=== PATIENT | male | born 1965 | race Hispanic/Latino ===

== ENCOUNTER 2016-11-19 07:53 | Outpatient (RCR) | payer MEDICAID, OTHER ==
[~2016-11-19 07:53] MED LIST: /ESOM40CA OR; /OLAN5ZYD OR; /QUET25TA OR; /THIA10TA OR; ABIL10TA; ABIL15TA; ABIL20TA2; ABIL2TAB OR; ABIL5TAB; ALLE25CA; ANBESOL; BEN; BENADRYL PO; CATA0.1T OR; CELE100C OR; EFFE150C; FERR325T; FOLI1TAB OR; IBUP600T OR; IBUP800T OR; KLON1TAB; KLON1TAB OR; KLON2TAB; LAMI; LAMICTAL PO; LITH300T2 OR; LITH600C OR; LYRI75CA OR; NEUR100C OR; NEUR300C OR; NEXI20CA; NEXI20CA OR; No Historical Meds; PARO12TACR OR; PAXI20TA OR; PREG100CA OR; PREG25CA OR; PREG50CA; PREG50CA OR; PROP60TA OR; QUET30TA OR; SERO200T; SERO200T OR; SERO400T; SERO400T OR; SERO400T3; SEROQUEL PO; TRAM50TA2; TRAM50TA2 OR; VENL25TA; VENL37.5; VENL75TA2; XANA2TAB2; ZOLO50TA OR; ZYPR10TA OR; [UNRECOGNIZED DRUG - CODE]; [UNRECOGNIZED DRUG - CODE]; [UNRECOGNIZED DRUG - CODE]; [UNRECOGNIZED DRUG - OTHER]
== END 2016-11-24 ==
LOC: M OUTALCOH 07:53
PROVIDERS: ATTEND Psychiatry & Neurology Psychiatry
DX: F10.20 Alcohol dependence, uncomplicated (principal); F15.20 Other stimulant dependence, uncomplicated; Z72.0 Tobacco use

== ENCOUNTER 2017-01-03 09:54 | Emergency (ER) | payer MEDICAID, SELFPAY ==
[~2017-01-03] VITALS: Ht 172.7 cm; Wt 82.0 kg
[2017-01-03 09:55] VITALS: BP 140/94
[2017-01-03] MEDS ORDERED: OMEP40CA2 PO (10:05)
[2017-01-03] MEDS ORDERED: BUSP30TA PO ×2 (10:05→10:27)
[2017-01-03] MEDS ORDERED: BUSP10TA PO (10:05)
[2017-01-03] MEDS ORDERED: NALT50TA4 PO (10:05)
[2017-01-03] MEDS ORDERED: MIRT30TA3 PO ×2 (10:05→10:27)
[2017-01-03] MEDS ORDERED: OMEP20CA3 PO (10:27)
[2017-01-03] MEDS ORDERED: GABA800T PO (10:27)
[2017-01-03] MEDS ORDERED: SERO200T PO (10:27)
== END 2017-01-03 10:36 | disposition home or self-care (01) ==
LOC: M ED 09:54
DX: Z76.0 Encounter for issue of repeat prescription (principal); M54.5 Low back pain; M51.36 Other intervertebral disc degeneration, lumbar region; I10 Essential (primary) hypertension; E78.00 Pure hypercholesterolemia, unspecified; K21.9 Gastro-esophageal reflux disease without esophagitis; E11.9 Type 2 diabetes mellitus without complications; B19.20 Unspecified viral hepatitis C without hepatic coma; F41.9 Anxiety disorder, unspecified; F32.9 Major depressive disorder, single episode, unspecified; F17.200 Nicotine dependence, unspecified, uncomplicated; Z79.899 Other long term (current) drug therapy; Z88.5 Allergy status to narcotic agent; Z88.8 Allergy status to other drugs, medicaments and biological substances

== ENCOUNTER 2017-02-11 18:34 | Emergency (ER) | payer OTHER, SELFPAY ==
[~2017-02-11] VITALS: Ht 172.7 cm; Wt 71.4 kg
[~2017-02-11 18:34] MED LIST changes: +BUSP10TA PO; +BUSP30TA PO; +GABA800T PO; +MIRT30TA3 PO; +NALT50TA4 PO; +OMEP20CA3 PO; +OMEP40CA2 PO; +SERO200T PO
[2017-02-11] MEDS ORDERED: LIDOCAINE 2% MDV 20 ML VIAL SC ONE (22:30)
[2017-02-11] MEDS ORDERED: CEFTAROLINE FOSAMIL 600 MG in D5W MINI-BAG PLUS 50 ML IV ONE (23:45)
[2017-02-11 23:53] VITALS: BP 118/80
[2017-02-12] LABS: ANION GAP 7 MEQ/L (8-16); BLOOD UREA NITROGEN 5 MG/DL (7-18); CALCIUM LEVEL 11.1 MG/DL (8.5-10.1); CARBON DIOXIDE LEVEL 22 MEQ/L (21-32); CHLORIDE LEVEL 108 MEQ/L (98-107); CREATININE FOR GFR 0.71 MG/DL (0.70-1.30); GLOMERULAR FILTRATION RATE > 60.0 (>56); GLUCOSE, FASTING 89 MG/DL (70-105); SODIUM LEVEL 137 MEQ/L (136-145)
[2017-02-12] MEDS ORDERED: BACT800T5 PO (01:06)
== END 2017-02-12 01:25 | disposition home or self-care (01) ==
LOC: M ED 18:34
DX: L03.115 Cellulitis of right lower limb (principal); B95.0 Streptococcus, group A, as the cause of diseases classified elsewhere; F19.10 Other psychoactive substance abuse, uncomplicated; M51.36 Other intervertebral disc degeneration, lumbar region; F41.9 Anxiety disorder, unspecified; F32.9 Major depressive disorder, single episode, unspecified; Z79.899 Other long term (current) drug therapy; Z88.5 Allergy status to narcotic agent; Z88.8 Allergy status to other drugs, medicaments and biological substances

== ENCOUNTER 2017-02-14 07:08 | Emergency (ER) | payer OTHER ==
[~2017-02-14] VITALS: Ht 170.2 cm; Wt 75.0 kg
[~2017-02-14 07:08] MED LIST changes: +BACT800T5 PO
[2017-02-14] MEDS ORDERED: GABA800T PO ×2 (07:28→10:05)
[2017-02-14] MEDS ORDERED: QUET1TAB9 PO ×2 (07:28→10:05)
[2017-02-14 07:30] VITALS: BP 129/90
[2017-02-14] MEDS ORDERED: MIRT30TA3 PO (10:00)
[2017-02-14] MEDS ORDERED: BUSP30TA PO (10:05)
[2017-02-14] MEDS ORDERED: OMEP40CA2 PO (10:05)
== END 2017-02-14 10:21 | disposition home or self-care (01) ==
LOC: M ED 07:08
DX: Z76.0 Encounter for issue of repeat prescription (principal); L03.90 Cellulitis, unspecified; B19.20 Unspecified viral hepatitis C without hepatic coma; F17.210 Nicotine dependence, cigarettes, uncomplicated; Z79.2 Long term (current) use of antibiotics; Z88.8 Allergy status to other drugs, medicaments and biological substances

== ENCOUNTER → 2017-05-05 | Outpatient (CLI) | payer OTHER ==
[~2017-05-05] MED LIST changes: +QUET1TAB9 PO
--- NOTE | 2017-05-05 16:27 | REP ---
Soft-tissue nonvascular ultrasound left thigh with Doppler: History: Painful palpable lump times 1 week upper inner left thigh. No comparison imaging. Sonographic findings: There is a chain of lymph nodes visible in the medial aspect of the left proximal thigh and groin soft tissues. The largest node measures 5.2 cm in length by 1.6 x 3.2 cm transverse. It is somewhat hyperemic on Doppler assessment. No abnormal fluid collection is seen. Impression: Medial thigh lymphadenopathy. Clinical follow-up is recommended. Signed by Guy Lynn MD 05/05/2017 05:28 P
== END ==
LOC: M SMT 10:19
PROVIDERS: ATTEND Surgery
DX: R59.0 Localized enlarged lymph nodes (principal)

== ENCOUNTER 2017-09-20 08:12 | Emergency (ER) | payer MEDICAID, OTHER ==
[2017-09-20] MEDS: NORCO, ANEXSIA 5/325MG TABLET (HYDROcodone/ACETAMINOPHEN) PO ×2 (09:26)
== END 2017-09-20 10:36 | disposition home or self-care (01) ==
LOC: M ED 08:12
DX: S86.112A Strain of other muscle(s) and tendon(s) of posterior muscle group at lower leg level, left leg, initial encounter (principal); X58.XXXA Exposure to other specified factors, initial encounter; Y92.89 Other specified places as the place of occurrence of the external cause; Y35.93XA Legal intervention, means unspecified, suspect injured, initial encounter; I10 Essential (primary) hypertension; K21.9 Gastro-esophageal reflux disease without esophagitis; B18.9 Chronic viral hepatitis, unspecified; M51.9 Unspecified thoracic, thoracolumbar and lumbosacral intervertebral disc disorder; F33.9 Major depressive disorder, recurrent, unspecified; F41.9 Anxiety disorder, unspecified; F17.210 Nicotine dependence, cigarettes, uncomplicated; F19.10 Other psychoactive substance abuse, uncomplicated; Z88.8 Allergy status to other drugs, medicaments and biological substances; Z79.899 Other long term (current) drug therapy; Z87.820 Personal history of traumatic brain injury
CPT/HCPCS: 73590

== ENCOUNTER 2018-06-13 06:36 | Emergency (ER) | payer MEDICAID | END 2018-06-13 07:16 | disposition home or self-care (01) | LOC: M ED 06:36 | DX: Z76.0 Encounter for issue of repeat prescription (principal); I10 Essential (primary) hypertension; K21.9 Gastro-esophageal reflux disease without esophagitis; M51.9 Unspecified thoracic, thoracolumbar and lumbosacral intervertebral disc disorder; F41.9 Anxiety disorder, unspecified; F32.9 Major depressive disorder, single episode, unspecified; Z86.19 Personal history of other infectious and parasitic diseases; F19.10 Other psychoactive substance abuse, uncomplicated; Z72.0 Tobacco use; Z79.899 Other long term (current) drug therapy; Z88.8 Allergy status to other drugs, medicaments and biological substances | CPT/HCPCS: 99284 ==

== ENCOUNTER 2018-09-04 13:08 | Emergency (ER) | payer MEDICAID ==
[~2018-09-04] VITALS: Ht 170.2 cm; Wt 77.3 kg
[2018-09-04 13:08] VITALS: BP 143/92
[~2018-09-04 13:08] MED LIST changes: -GABA800T PO; +GABA800T4 PO; +IBUP80TA PO; +QUET1TAB8 PO; +WELL200T PO; +[UNRECOGNIZED DRUG - REMARK]
== END 2018-09-04 16:43 | disposition left against medical advice (07) ==
LOC: M ED 13:08
DX: Z53.21 Procedure and treatment not carried out due to patient leaving prior to being seen by health care provider (principal)

== ENCOUNTER 2019-01-02 23:38 | Emergency (ER) | payer MEDICAID, SELFPAY ==
[~2019-01-02] VITALS: Ht 170.2 cm; Wt 71.8 kg
[2019-01-02 23:38] VITALS: BP 111/69
[~2019-01-02 23:38] MED LIST changes: -/ESOM40CA OR; -/OLAN5ZYD OR; -/QUET25TA OR; +NEXI1CAP3 OR; -OMEP20CA3 PO; +OMEP20CA4 PO; +SERO1TAB3 OR; +VENL1TAB35; -VENL25TA; +ZYPR1TAB3 OR
== END 2019-01-03 00:28 | disposition left against medical advice (07) ==
LOC: M ED 23:38
DX: Z53.29 Procedure and treatment not carried out because of patient's decision for other reasons (principal)

== ENCOUNTER 2019-03-23 01:29 | Emergency (ER) | payer SELFPAY ==
[~2019-03-23] VITALS: Ht 170.2 cm; Wt 65.9 kg
[~2019-03-23 01:29] MED LIST changes: -QUET1TAB9 PO; +QUET200T2 PO
[2019-03-23] MEDS ORDERED: ZYPR15TA PO (01:36)
[2019-03-23] MEDS ORDERED: CLINDAMYCIN 900 MG in IV 1 EA IV ONE (03:00)
[2019-03-23] MEDS ORDERED: KETOROLAC 30 MG/ML VIAL (J1885) IV ONE (03:15)
[2019-03-23 03:19] LABS: BASO % 0.4 % (0.0-1.0); EOS # 0.1 10^3/uL (0.0-0.5); EOS % 0.5 % (0.0-3.0); HEMATOCRIT 46.2 % (42.0-52.0); HEMOGLOBIN 15.7 g/dl (13.5-17.5); LYMPH # 2.2 10^3/uL (1.5-5.0); LYMPH % 19.7 % (24.0-44.0); MEAN CORPUSCULAR HEMOGLOBIN 32.2 pg (27.0-33.0); MEAN CORPUSCULAR VOLUME 94.9 fl (80.0-96.0); MONO # 0.9 10^3/uL (0.0-0.8); MONO % 8.2 % (0.0-5.0); NEUTROPHILS # 7.7 10^3/uL (1.5-8.5); NEUTROPHILS % 70.8 % (36.0-66.0); PLATELET COUNT, AUTOMATED 208 10^3/uL (150-450); RED BLOOD COUNT 4.87 10^6/uL (4.30-6.10); WHITE BLOOD COUNT 10.9 10^3/uL (4.0-10.0)
[2019-03-23 03:48] LABS: BLOOD UREA NITROGEN 8 MG/DL (7-18); CALCIUM LEVEL 11.1 MG/DL (8.5-10.1); CARBON DIOXIDE LEVEL 28 MEQ/L (21-32); CHLORIDE LEVEL 104 MEQ/L (98-107); CREATININE FOR GFR 0.68 MG/DL (0.70-1.30); GLOMERULAR FILTRATION RATE > 60.0 (>56); GLUCOSE, FASTING 109 MG/DL (70-100); POTASSIUM SERUM 3.7 MEQ/L (3.5-5.1); SODIUM LEVEL 141 MEQ/L (136-145)
[2019-03-23] MEDS ORDERED: ISOVUE-370 76% 100ML VIAL (Q9967) As Ordered ONE (04:35)
[2019-03-23 05:36] VITALS: BP 116/68
--- NOTE | 2019-03-23 06:16 | REPVR ---
PROCEDURE INFORMATION: Exam: CT Maxillofacial With Contrast Exam date and time: 03/23/2019 4:30 AM Clinical history: 53 years old, male; Maxilla pain; Additional info: Dental abscess, left TECHNIQUE: Imaging protocol: Computed tomography images of the face with intravenous contrast. Radiation optimization: All CT scans at this facility use at least one of these dose optimization techniques: automated exposure control; mA and/or kV adjustment per patient size (includes targeted exams where dose is matched to clinical indication); or iterative reconstruction. Contrast material: ISO; Contrast volume: 75 ml; Contrast route: AC; Other technique: Initial images were markedly limited by motion. Images were repeated for motion. COMPARISON: No relevant prior studies available. FINDINGS: Orbits: Orbits are normal. Globes are unremarkable. Sinuses: There is diffuse mucoperiosteal thickening in the left maxillary sinus, consistent with chronic sinusitis. There is a trace mucoperiosteal thickening in the right maxillary sinus and ethmoid sinus. The frontal and sphenoid sinuses are clear. No fluid levels. Bones/joints: There is mild deformity of the nasal bones, probably with the sequela of previous trauma. No acute fracture are identified. Dental: There are multiple large dental caries. There is a periapical lucency associated with the left maxillary cuspid tooth which also extends to the tip of the root of the adjacent left first maxillary bicuspid tooth. There is defect in the overlying cortex. There is a periapical lucency at the left maxillary central incisor. Nasopharynx: The nasopharynx appears unremarkable. Oropharynx: The oropharynx appears unremarkable. There is no enlargement of the tonsils. Lymph nodes: No lymphadenopathy is seen. Soft tissues: There is a large amount of soft tissue swelling anteriorly on the left side of the face centered in the maxillary region. There is a crescentic lucency with peripheral enhancement overlying the left maxillary alveolar ridge, measuring 9 x 4 mm, consistent with a dental abscess extending into the soft tissues. IMPRESSION: 1. Left maxillary cuspid tooth periapical lucency, defect in the overlying cortex, a small crescentic peripherally enhancing collection in the overlying soft tissues, and a large amount of adjacent left sided facial soft tissue swelling, consistent with a dental abscess extending into the soft tissues. The periapical lucency also extends to the left first bicuspid tooth. 2. Mild left maxillary chronic sinusitis, which may be secondary to dental disease. 3. Multiple additional dental caries also identified. Electronically signed by: Kaylin Mario On 03/23/2019 06:16:14 AM
[2019-03-23] MEDS ORDERED: IBUP-1022 PO (06:24)
[2019-03-23] MEDS ORDERED: CLEO300C2 PO (06:24)
== END 2019-03-23 06:39 | disposition home or self-care (01) ==
LOC: M ED 01:29
DX: K04.7 Periapical abscess without sinus (principal); B19.20 Unspecified viral hepatitis C without hepatic coma; Z79.899 Other long term (current) drug therapy; Z88.8 Allergy status to other drugs, medicaments and biological substances; F15.10 Other stimulant abuse, uncomplicated
CPT/HCPCS: 70487; 80048; 85025; 96365; 96375; 99284; J1885; Q9967

== ENCOUNTER → 2019-07-04 | Outpatient (REF) | payer OTHER ==
[~2019-07-04] MED LIST changes: +CLEO300C2 PO; +IBUP-1022 PO; +OMEP-172 PO; -OMEP20CA4 PO; -OMEP40CA2 PO; +OMEP40CA97 PO; +ZYPR15TA PO
[2019-07-04 21:32] LABS: CHLAMYDIA DNA AMPLIFICATION NEGATIVE (NEGATIVE); GC DNA AMPLIFICATION NEGATIVE (NEGATIVE)
== END ==
LOC: M LAB REF 16:24
PROVIDERS: ATTEND Surgery
DX: A56.8 Sexually transmitted chlamydial infection of other sites (principal)

== ENCOUNTER → 2020-06-05 | Outpatient (CLI) | payer OTHER ==
[~2020-06-05] MED LIST changes: -OMEP-172 PO; +OMEP1CAP73 PO; +QUET100T2 PO; -QUET1TAB8 PO
--- NOTE | 2020-06-05 14:18 | REP ---
INDICATION: R LEG PAIN. COMPARISON: None. TECHNIQUE: Right lower extremity deep vein duplex ultrasound. FINDINGS: The deep veins demonstrate normal compression, normal Doppler color flow and normal Doppler waveforms with respiration and augmentation at multiple levels from the popliteal vein to the common femoral vein. IMPRESSION: There is no evidence of right lower extremity deep vein thrombus by duplex ultrasound. <Electronically signed by Don Cabrera > 06/05/20 1301
== END ==
LOC: M RAD 13:36
PROVIDERS: ATTEND Surgery
DX: M79.604 Pain in right leg (principal); R22.41 Localized swelling, mass and lump, right lower limb

== ENCOUNTER → 2021-02-03 | Outpatient (REF) ==
[~2021-02-03] MED LIST changes: +OMEP40CA4 PO; -OMEP40CA97 PO
== END ==
LOC: M LAB LCGH 19:07
PROVIDERS: ATTEND Internal Medicine
DX: Z00.00 Encounter for general adult medical examination without abnormal findings (principal)

== ENCOUNTER 2022-09-19 20:23 | Emergency (ER) | payer OTHER ==
[~2022-09-19] VITALS: Ht 170.2 cm; Wt 70.5 kg
[2022-09-19 20:35] VITALS: BP 129/75
== END 2022-09-19 20:47 | disposition left against medical advice (07) ==
LOC: EDBD 20:23 → M ED 20:23
DX: F19.10 Other psychoactive substance abuse, uncomplicated (principal); B19.20 Unspecified viral hepatitis C without hepatic coma; Z88.8 Allergy status to other drugs, medicaments and biological substances; Z79.899 Other long term (current) drug therapy

== ENCOUNTER 2022-11-01 23:36 | Emergency (ER) | payer MEDICAID, OTHER ==
[2022-11-02 01:56] LABS: BENZODIAZEPINES URINE NEGATIVE (NEGATIVE)
[2022-11-02 01:57] LABS: BARBITURATES URINE NEGATIVE (NEGATIVE); METHADONE URINE NEGATIVE (NEGATIVE); OPIATES URINE NEGATIVE (NEGATIVE); PHENCYCLIDINE URINE NEGATIVE (NEGATIVE)
[2022-11-02 02:25] LABS: HEMATOCRIT 41.6 % (42.0-52.0); HEMOGLOBIN 13.4 g/dl (13.5-17.5); MEAN CORPUSCULAR HEMOGLOBIN 30.5 pg (27.0-33.0); MEAN CORPUSCULAR HGB CONC 32.2 g/dl (32.0-36.5); MEAN CORPUSCULAR VOLUME 94.5 fl (80.0-96.0); PLATELET COUNT, AUTOMATED 196 10^3/uL (150-450)
[2022-11-02] MEDS ORDERED: ACETAMINOPHEN TAB 650MG DOSE (2X325MG) PO ONE (02:25)
[2022-11-02 02:37] LABS: AMPHETAMINES LEVEL URINE POSITIVE (NEGATIVE); CANNABINOIDS URINE POSITIVE (NEGATIVE); COCAINE METABOLITE URINE POSITIVE (NEGATIVE)
[2022-11-02 02:39] LABS: ETHYL ALCOHOL (ETHANOL) < 0.003 % (0.000-0.010)
[2022-11-02 02:40] LABS: SALICYLATE LEVEL < 3.0 MG/DL (<30)
[2022-11-02 02:41] LABS: ACETAMINOPHEN LEVEL < 2.0 UG/ML (10.0-20.0); ALBUMIN 3.3 G/DL (3.2-5.2); ALKALINE PHOSPHATASE 173 U/L (46-116); ALT/SGPT 39 U/L (7.0-40); AST/SGOT 46 U/L (<34); BILIRUBIN,DIRECT 0.1 MG/DL (<0.4); BILIRUBIN,TOTAL 0.3 MG/DL (0.3-1.2); BLOOD UREA NITROGEN 16 MG/DL (9-23); CALCIUM LEVEL 11.2 MG/DL (8.5-10.1); CARBON DIOXIDE LEVEL 24 MMOL/L (20-31); CHLORIDE LEVEL 106 MMOL/L (98-107); CREATININE FOR GFR 0.66 MG/DL (0.70-1.30); GLOMERULAR FILTRATION RATE > 60.0 (>56); GLUCOSE, FASTING 100 MG/DL (60-100); POTASSIUM SERUM 4.4 MMOL/L (3.5-5.1); SODIUM LEVEL 136 MMOL/L (136-145); TOTAL PROTEIN 6.8 G/DL (5.7-8.2)
[2022-11-02 02:43] LABS: THYROID STIMULATING HORMONE 2.294 uIU/ML (0.55-4.78)
[2022-11-02] MEDS ORDERED: BENZONATATE 100MG CAPSULE PO ONE (04:50)
[2022-11-02] MEDS ORDERED: LORazepam 2 MG TAB PO PRN (15:35)
[2022-11-02] MEDS ORDERED: OXAZEPAM 15MG CAP PO ONE (15:35)
[2022-11-02 15:36] VITALS: BP 118/77
[2022-11-02] MEDS ORDERED: THIAMINE 100 MG TAB PO SCH (16:00)
[2022-11-03] MEDS ORDERED: FOLIC ACID 1MG TAB PO SCH (09:00)
[2022-11-03] MEDS ORDERED: MULTIVITAMINS/MINERALS THERAP 1 TAB PO SCH (09:00)
== END 2022-11-02 17:16 | disposition home or self-care (01) ==
LOC: M ED 23:36
DX: F19.10 Other psychoactive substance abuse, uncomplicated (principal); B19.20 Unspecified viral hepatitis C without hepatic coma; F17.200 Nicotine dependence, unspecified, uncomplicated; F12.10 Cannabis abuse, uncomplicated; F10.10 Alcohol abuse, uncomplicated

== ENCOUNTER 2023-06-12 14:18 | Emergency (ER) | payer OTHER ==
[~2023-06-12] VITALS: Ht 170.2 cm; Wt 59.5 kg
[2023-06-12] MEDS ORDERED: ACET-645 (14:35)
[2023-06-12 15:21] LABS: BASO % 0.6 % (0.0-1.0); HEMATOCRIT 43.5 % (42.0-52.0); HEMOGLOBIN 14.7 g/dl (13.5-17.5); LYMPH % 28.7 % (24.0-44.0); MEAN CORPUSCULAR HEMOGLOBIN 31.5 pg (27.0-33.0); MEAN CORPUSCULAR HGB CONC 33.8 g/dl (32.0-36.5); MEAN CORPUSCULAR VOLUME 93.1 fl (80.0-96.0); MONO # 0.4 10^3/uL (0.0-0.8); MONO % 6.3 % (2.0-8.0); NEUTROPHILS # 4.4 10^3/uL (1.5-8.5); NEUTROPHILS % 63.8 % (36.0-66.0); PLATELET COUNT, AUTOMATED 222 10^3/uL (150-450); RED BLOOD COUNT 4.67 10^6/uL (4.30-6.10); WHITE BLOOD COUNT 6.9 10^3/uL (4.0-10.0)
[2023-06-12 15:33] LABS: ERYTHROCYTE SEDIMENTATION RATE 17 mm/hr (0-20)
[2023-06-12 15:43] LABS: C REACTIVE PROTEIN QUANTITATIV < 0.40 MG/DL (<1.0)
[2023-06-12 15:44] LABS: BLOOD UREA NITROGEN 30 MG/DL (9-23); CALCIUM LEVEL 10.8 MG/DL (8.5-10.1); CARBON DIOXIDE LEVEL 25 MMOL/L (20-31); CHLORIDE LEVEL 104 MMOL/L (98-107); CREATININE FOR GFR 0.88 MG/DL (0.70-1.30); GLOMERULAR FILTRATION RATE > 60.0 (>56); GLUCOSE, FASTING 115 MG/DL (60-100); SODIUM LEVEL 135 MMOL/L (136-145)
[2023-06-12] MEDS ORDERED: DOXYCYCLINE HYCLATE 100MG TABLET PO ONE (16:20)
[2023-06-12] MEDS ORDERED: DOXY-443 PO (16:21)
[2023-06-12 16:30] VITALS: BP 106/68; TEMP 97.8
[2023-06-12 16:33] VITALS: O2SAT 100
== END 2023-06-12 16:56 | disposition home or self-care (01) ==
LOC: M ED 14:18
DX: L02.413 Cutaneous abscess of right upper limb (principal); L03.113 Cellulitis of right upper limb; Z86.19 Personal history of other infectious and parasitic diseases; F11.10 Opioid abuse, uncomplicated; Z88.8 Allergy status to other drugs, medicaments and biological substances

== ENCOUNTER 2023-06-24 01:11 | Emergency (ER) | payer MEDICAID, OTHER ==
[~2023-06-24] VITALS: Ht 170.2 cm; Wt 66.8 kg
[~2023-06-24 01:11] MED LIST changes: +ACET-645; +DOXY-443 PO
[2023-06-24] MEDS ORDERED: LIDOCAINE 5% (LIDODERM) PATCH TD ONE (06:45)
[2023-06-24] MEDS ORDERED: KETOROLAC 30 MG/ML 1ML VIAL IM ONE (06:45)
[2023-06-24] MEDS ORDERED: CYCLOBENZAPRINE 5MG TABLET PO ONE (06:45)
[2023-06-24 07:02] VITALS: BP 130/83; TEMP 97.4; O2SAT 97
[2023-06-24] MEDS ORDERED: CYCL-707 PO (08:34)
[2023-06-24] MEDS ORDERED: LIDO5DIS41 TD (08:34)
[2023-06-24] MEDS ORDERED: NAPR-837 PO (08:34)
== END 2023-06-24 09:13 | disposition home or self-care (01) ==
LOC: M ED 01:11 → EDBD 01:11 → M ED 09:13
DX: M54.50 Low back pain, unspecified (principal); M25.512 Pain in left shoulder; I10 Essential (primary) hypertension; K21.9 Gastro-esophageal reflux disease without esophagitis; B19.20 Unspecified viral hepatitis C without hepatic coma; F41.9 Anxiety disorder, unspecified; F32.A Depression, unspecified; F19.10 Other psychoactive substance abuse, uncomplicated; F17.200 Nicotine dependence, unspecified, uncomplicated; Z88.8 Allergy status to other drugs, medicaments and biological substances
CPT/HCPCS: 72131; 73030; 73110; 73590; 93971; 96372; 99284; J1885

== ENCOUNTER 2023-10-02 19:47 | Emergency (ER) | payer OTHER ==
[~2023-10-02 19:47] MED LIST changes: +CYCL-707 PO; +LIDO5DIS41 TD; +NAPR-837 PO
[2023-10-02] MEDS ORDERED: OLANZapine INTRAMUSCULAR 10MG VIAL IM ONE (20:10)
[2023-10-02] MEDS: LORazepam 2 MG/ML 1ML VIAL IM ONE (20:34)
[2023-10-02] MEDS: diphenhydrAMINE 50MG/ML VIAL IM ONE (20:34)
[2023-10-02] MEDS: HALOPERIDOL 5MG/ML 1ML VIAL IM STA (20:41)
[2023-10-02 22:57] LABS: HEMATOCRIT 41.3 % (42.0-52.0); HEMOGLOBIN 13.4 g/dl (13.5-17.5); MEAN CORPUSCULAR HEMOGLOBIN 31.2 pg (27.0-33.0); MEAN CORPUSCULAR HGB CONC 32.4 g/dl (32.0-36.5); MEAN CORPUSCULAR VOLUME 96.3 fl (80.0-96.0); PLATELET COUNT, AUTOMATED 324 10^3/uL (150-450); RED BLOOD COUNT 4.29 10^6/uL (4.30-6.10)
[2023-10-02 23:34] LABS: ETHYL ALCOHOL (ETHANOL) < 0.003 % (0.000-0.010)
[2023-10-02 23:35] LABS: SALICYLATE LEVEL < 3.0 MG/DL (<30)
[2023-10-02 23:36] LABS: ALBUMIN 3.5 G/DL (3.2-5.2); ALKALINE PHOSPHATASE 167 U/L (46-116); ALT/SGPT 47 U/L (7.0-40); AST/SGOT 55 U/L (<34); BILIRUBIN,DIRECT 0.2 MG/DL (<0.4); BILIRUBIN,TOTAL 0.4 MG/DL (0.3-1.2); BLOOD UREA NITROGEN 24 MG/DL (9-23); CALCIUM LEVEL 11.9 MG/DL (8.5-10.1); CARBON DIOXIDE LEVEL 30 MMOL/L (20-31); CHLORIDE LEVEL 104 MMOL/L (98-107); CREATININE FOR GFR 1.07 MG/DL (0.70-1.30); GLOMERULAR FILTRATION RATE > 60.0 (>56); GLUCOSE, FASTING 105 MG/DL (60-100); POTASSIUM SERUM 4.8 MMOL/L (3.5-5.1); SODIUM LEVEL 136 MMOL/L (136-145)
[2023-10-02 23:38] LABS: THYROID STIMULATING HORMONE 2.042 uIU/ML (0.55-4.78)
[2023-10-02] MEDS ORDERED: MED REC CURRENTLY UNOBTAINABLE XX SCH (23:55)
[2023-10-03 01:11] LABS: AMPHETAMINES LEVEL URINE NEGATIVE (NEGATIVE); PHENCYCLIDINE URINE NEGATIVE (NEGATIVE)
[2023-10-03 01:12] LABS: BARBITURATES URINE NEGATIVE (NEGATIVE); BENZODIAZEPINES URINE NEGATIVE (NEGATIVE); COCAINE METABOLITE URINE NEGATIVE (NEGATIVE); METHADONE URINE NEGATIVE (NEGATIVE)
[2023-10-03 01:14] LABS: CANNABINOIDS URINE POSITIVE (NEGATIVE); OPIATES URINE POSITIVE (NEGATIVE)
[2023-10-03 10:29] VITALS: BP 130/78; TEMP 98; O2SAT 98
== END 2023-10-03 10:53 | disposition home or self-care (01) ==
LOC: M ED 19:47
DX: F19.10 Other psychoactive substance abuse, uncomplicated (principal); F41.9 Anxiety disorder, unspecified; F32.A Depression, unspecified; F17.210 Nicotine dependence, cigarettes, uncomplicated; F10.10 Alcohol abuse, uncomplicated; Z88.8 Allergy status to other drugs, medicaments and biological substances; Z79.899 Other long term (current) drug therapy
CPT/HCPCS: 80048; 80076; 80143; 80307; 82077; 84443; 85027; 87635; 96372; 99284; J1200; J1630; J2060

== ENCOUNTER 2024-01-02 20:31 | Emergency (ER) | payer OTHER ==
[~2024-01-02 20:31] MED LIST changes: +DOXY-323 PO; -DOXY-443 PO
== END 2024-01-02 20:44 | disposition left against medical advice (07) ==
LOC: M ED 20:31 → EDBD 20:31 → M ED 20:44
DX: Z53.21 Procedure and treatment not carried out due to patient leaving prior to being seen by health care provider (principal)

== ENCOUNTER 2024-01-07 00:55 | Emergency (ER) | payer OTHER ==
[~2024-01-07] VITALS: Ht 170.2 cm; Wt 65.9 kg
[2024-01-07 01:02] VITALS: BP 131/75; TEMP 97.9; O2SAT 98
== END 2024-01-07 02:36 | disposition home or self-care (01) ==
LOC: M ED 00:55
DX: F15.10 Other stimulant abuse, uncomplicated (principal); F32.A Depression, unspecified; F41.9 Anxiety disorder, unspecified; F17.210 Nicotine dependence, cigarettes, uncomplicated; F10.10 Alcohol abuse, uncomplicated; Z88.8 Allergy status to other drugs, medicaments and biological substances; Z79.899 Other long term (current) drug therapy

== ENCOUNTER 2024-01-16 21:52 | Emergency (ER) | payer OTHER ==
[~2024-01-16] VITALS: Ht 170.2 cm; Wt 67.0 kg
[2024-01-16 23:28] LABS: BASO % 0.5 % (0.0-1.0); HEMATOCRIT 39.8 % (42.0-52.0); HEMOGLOBIN 13.7 g/dl (13.5-17.5); LYMPH # 1.2 10^3/uL (1.5-5.0); LYMPH % 20.5 % (24.0-44.0); MEAN CORPUSCULAR HEMOGLOBIN 32.5 pg (27.0-33.0); MEAN CORPUSCULAR HGB CONC 34.4 g/dl (32.0-36.5); MEAN CORPUSCULAR VOLUME 94.5 fl (80.0-96.0); MONO # 0.5 10^3/uL (0.0-0.8); NEUTROPHILS # 4.1 10^3/uL (1.5-8.5); NEUTROPHILS % 70.7 % (36.0-66.0); PLATELET COUNT, AUTOMATED 187 10^3/uL (150-450); RED BLOOD COUNT 4.21 10^6/uL (4.30-6.10); WHITE BLOOD COUNT 5.8 10^3/uL (4.0-10.0)
[2024-01-16 23:57] LABS: ETHYL ALCOHOL (ETHANOL) < 0.003 % (0.000-0.010)
[2024-01-16 23:59] LABS: ALBUMIN 3.8 G/DL (3.2-5.2); ALKALINE PHOSPHATASE 240 U/L (46-116); ALT/SGPT 46 U/L (7.0-40); AST/SGOT 50 U/L (<34); BILIRUBIN,DIRECT 0.3 MG/DL (<0.4); BILIRUBIN,TOTAL 0.6 MG/DL (0.3-1.2); BLOOD UREA NITROGEN 25 MG/DL (9-23); CALCIUM LEVEL 11.9 MG/DL (8.5-10.1); CARBON DIOXIDE LEVEL 30 MMOL/L (20-31); CHLORIDE LEVEL 100 MMOL/L (98-107); CPK CREATINE PHOSPHOKINASE 488 U/L (46-171); CREATININE FOR GFR 0.79 MG/DL (0.70-1.30); GLOMERULAR FILTRATION RATE > 60.0 (>56); GLUCOSE, FASTING 110 MG/DL (60-100); POTASSIUM SERUM 4.1 MMOL/L (3.5-5.1); SALICYLATE LEVEL < 3.0 MG/DL (<30); SODIUM LEVEL 136 MMOL/L (136-145); TOTAL PROTEIN 6.8 G/DL (5.7-8.2)
[2024-01-17 00:01] LABS: THYROID STIMULATING HORMONE 1.255 uIU/ML (0.55-4.78)
[2024-01-17 04:59] VITALS: BP 161/64; TEMP 97.2; O2SAT 98
== END 2024-01-17 05:01 | disposition home or self-care (01) ==
LOC: M ED 21:52
DX: F11.10 Opioid abuse, uncomplicated (principal); R94.31 Abnormal electrocardiogram [ECG] [EKG]; F32.A Depression, unspecified; F17.210 Nicotine dependence, cigarettes, uncomplicated; Z88.8 Allergy status to other drugs, medicaments and biological substances; Z79.899 Other long term (current) drug therapy